=== PATIENT | female | born 1995 | race Two or more races ===

== ENCOUNTER 2019-06-18 22:34 | Emergency (ER) | payer BC ==
[~2019-06-18] VITALS: Ht 160 cm; Wt 54.4 kg
[2019-06-19] MEDS ORDERED: ZYNCOF 20-400120 ML PO (01:21)
== END 2019-06-19 01:27 | disposition home or self-care (01) ==
LOC: ER 22:34
DX: J68.8 Other respiratory conditions due to chemicals, gases, fumes and vapors (principal); R06.02 Shortness of breath; T59.894A Toxic effect of other specified gases, fumes and vapors, undetermined, initial encounter; Y92.813 Airplane as the place of occurrence of the external cause